=== PATIENT | male | born 1960 | race Caucasian/White ===

== ENCOUNTER → 2016-11-04 | Outpatient (CLI) | payer OTHER ==
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
== END ==
LOC: RADCTMAIN 13:58
PROVIDERS: ATTEND Surgery
DX: K76.89 Other specified diseases of liver (principal); K43.9 Ventral hernia without obstruction or gangrene
CPT/HCPCS: 74177; Q9967

== ENCOUNTER → 2017-09-27 | Outpatient (CLI) | payer OTHER ==
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
== END | disposition home or self-care (01) ==
LOC: RADUSWWP 06:49
PROVIDERS: ATTEND Family Medicine
DX: R16.0 Hepatomegaly, not elsewhere classified (principal)
CPT/HCPCS: 76705

== ENCOUNTER → 2017-10-11 | Outpatient (CLI) | payer OTHER, MEDICARE ==
--- NOTE | 2017-10-11 23:51 | MR ---
EXAMINATION TYPE: MR abdomen wo/w con DATE OF EXAM: 10/11/2017 COMPARISON: NONE HISTORY: Abnormal U/S, Hepatomegaly / Liver Mass CONTRAST: Standard multiplanar, multisequence MRI departmental protocol utilizing 10 mL intravenous Gadavist ga dolinium contrast. FINDINGS: There is a 5.3 x 4 cm rounded mass in the anterior right lobe of the liver that has fairly high signal on the T2 images. This is adjacent to the gallbladder. There is no enhancement and the wa ll is relatively thin. I think this is a complex cyst. This appears not changed in size compared to u ltrasound 09/27/[address] scan of 11/04/2016. The bile ducts are not dilated. There is no evidenc e of a pancreatic mass. Pancreatic duct appears normal. Spleen appears normal. There is no adrenal ma ss. Kidneys show satisfactory contrast opacification. There is no hydronephrosis. There is no sign of retroperitoneal adenopathy. There is no ascites. The stomach appears normal. There is no sign of ple ural effusion. Gallbladder appears normal. IMPRESSION: Oval-shaped fluid signal type mass in the anterior right lobe of the liver has features of a complex cyst and is stable compared to the exam almost one year ago CT scan 11/04/2016. This suggests a benign etiology. No dilated ducts. The lesion has some significant internal echoes on the ultrasound recent exam and this is probably due to complex fluid.
== END | disposition home or self-care (01) ==
LOC: RADMRIMAIN 15:11
PROVIDERS: ATTEND Family Medicine
DX: R16.0 Hepatomegaly, not elsewhere classified (principal); K76.9 Liver disease, unspecified
CPT/HCPCS: 74183; A9581

== ENCOUNTER 2018-10-31 10:17 | Emergency (ER) | payer MEDICARE, OTHER ==
[2018-10-31 10:22] VITALS: BP 142/100; PULSE 70; RESP 16; TEMP 97.7
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
--- NOTE | 2018-10-31 11:19 | ED ---
Fall HPI - General Chief Complaint: Fall Stated Complaint: Fall-Rib pain Source: patient, RN notes reviewed, old records reviewed Mode of arrival: ambulatory - History of Present Illness Initial Comments: This is a 58-year-old male the ER for evaluation. Patient presents status post fall. Fall right-sided rib pain. No shortness of breath. Symptoms 4 days. He is wearing a brace for his ribs he does seem like it helps. No pain medication MD Complaint: fall -: days(s) (3) Fall From: standing When Fall Occurred: # days [employer] (3) Fall Witnessed: no Place Fall Occurred: home Loss of Consciousness: none Prolonged Down Time?: no Symptoms Prior to Fall: none Location: chest Severity: moderate Severity scale (1-10): 4 Quality: sharp Context: tripped/slipped Associated Symptoms: denies - Related Data Home Medications Medication Instructions Recorded Confirmed Latanoprost Ophth [Xalatan 0.005%] 1 drop BOTH EYES HS 10/31/18 10/31/18 Previous Rx's Medication Instructions Recorded Naproxen [Naprosyn] 500 mg PO Q12HR PRN #30 tab 10/31/18 Allergies Allergy/AdvReac Type Severity Reaction Status Date / Time No Known Allergies Allergy Verified 10/31/18 10:22 Review of Systems ROS Statement: Those systems with pertinent positive or pertinent negative responses have been documented in the HPI. ROS Other: All systems not noted in ROS Statement are negative. Past Medical History Past Medical History: Diabetes Mellitus, Eye Disorder, GERD/Reflux Additional Past Medical History / Comment(s): GLAUCOMA, HX OF POLYPS, DIET CONTROLLED DIABETES History of Any Multi-Drug Resistant Organisms: None Reported Past Surgical History: Orthopedic Surgery Additional Past Surgical History / Comment(s): LEFT LEG SURGERY WITH PINS, COLONOSCOPY, EGD Past Anesthesia/Blood Transfusion Reactions: No Reported Reaction Past Psychological History: No Psychological Hx Reported Smoking Status: Former smoker Past Alcohol Use History: Occasional Past Drug Use History: None Reported General Exam Limitations: no limitations General appearance: alert, in no apparent distress Head exam: Present: atraumatic, normocephalic, normal inspection Eye exam: Present: normal appearance, PERRL, EOMI. Absent: scleral icterus, conjunctival injection, periorbital swelling ENT exam: Present: normal exam, mucous membranes moist Neck exam: Present: normal inspection. Absent: tenderness, meningismus, lymphadenopathy Respiratory exam: Present: normal lung sounds bilaterally. Absent: respiratory distress, wheezes, rales, rhonchi, stridor Cardiovascular Exam: Present: regular rate, normal rhythm, normal heart sounds. Absent: systolic murmur, diastolic murmur, rubs, gallop, clicks GI/Abdominal exam: Present: soft, normal bowel sounds. Absent: distended, tenderness, guarding, rebound, rigid Extremities exam: Present: normal inspection, full ROM, normal capillary refill. Absent: tenderness, pedal edema, joint swelling, calf tenderness Back exam: Present: normal inspection Neurological exam: Present: alert, oriented X3, CN II-XII intact Psychiatric exam: Present: normal affect, normal mood Skin exam: Present: warm, dry, intact, normal color. Absent: rash Course Vital Signs 10/31/18 10:20 Temperature 97.7 F Pulse Rate 70 Respiratory 16 Rate Blood Pressure 142/100 O2 Sat by Pulse 95 Oximetry Medical Decision Making - Medical Decision Making 58 male the ER for evaluation patient had today fall. Positive rib fracture. Patient does not want take pain medication. Patient can be discharged home - Radiology Data Radiology results: report reviewed (S x-ray with rib studies positive for 6 or fracture), image reviewed Disposition Clinical Impression: Right rib fracture, Fall Disposition: HOME SELF-CARE Condition: Good Instructions (If sedation given, give patient instructions): Rib Fracture (ED) Prescriptions: Naproxen [Naprosyn] 500 mg PO Q12HR PRN #30 tab PRN Reason: Pain Is patient prescribed a controlled substance at d/c from ED?: No Referrals: None,Stated [Primary Care Provider] - 1-2 days
== END 2018-10-31 11:34 | disposition home or self-care (01) ==
LOC: EC 10:17
DX: S22.31XA Fracture of one rib, right side, initial encounter for closed fracture (principal); H40.9 Unspecified glaucoma; Z87.891 Personal history of nicotine dependence; Z79.899 Other long term (current) drug therapy; W01.0XXA Fall on same level from slipping, tripping and stumbling without subsequent striking against object, initial encounter; Y92.009 Unspecified place in unspecified non-institutional (private) residence as the place of occurrence of the external cause
CPT/HCPCS: 99284

== ENCOUNTER 2018-12-02 23:16 | Emergency (ER) | payer MEDICARE ==
--- NOTE | 2018-12-03 00:21 | ED ---
Chest Pain HPI - General Chief Complaint: Chest Pain Stated Complaint: Shoulder pain, abd pain Time Seen by Provider: 12/02/18 23:34 Source: patient, family Mode of arrival: ambulatory Limitations: no limitations - History of Present Illness Initial Comments: This patient is a 58-year-old man who presents to be evaluated for pain to the back and the substernal epigastric area. The patient states that the pain had come on tonight. The patient reports that he takes a number of vitamins and herbals. He ended up taking all those this evening, it amounts to about 10 capsules. He states that after taking those he experienced pain between the shoulder blade area and also the substernal and epigastric areas. He states that it is aching, is moderately intense, and he did not discover worsening or relieving factors. When the pain persisted he decided to be seen here. The patient states that the pain has improved as far as intensity but it has not fully resolved. He has not had palpitations, syncope, dyspnea, diaphoresis, nausea or vomiting. MD Complaint: chest pain Onset/Timin -: hour(s) Onset: during rest Pain Location: substernal Pain Radiation: back Severity: moderate Quality: aching Consistency: constant Improves With: nothing Worsens With: nothing Treatments Prior to Arrival: none - Related Data Home Medications Medication Instructions Recorded Confirmed Latanoprost Ophth [Xalatan 0.005%] 1 drop BOTH EYES HS 10/31/18 10/31/18 Previous Rx's Medication Instructions Recorded Naproxen [Naprosyn] 500 mg PO Q12HR PRN #30 tab 10/31/18 Allergies Allergy/AdvReac Type Severity Reaction Status Date / Time No Known Allergies Allergy Verified 12/02/18 23:23 Review of Systems ROS Statement: Those systems with pertinent positive or pertinent negative responses have been documented in the HPI. ROS Other: All systems not noted in ROS Statement are negative. Constitutional: Denies: fever, chills Respiratory: Denies: cough, dyspnea Cardiovascular: Reports: as per HPI, chest pain. Denies: palpitations, dyspnea on exertion, orthopnea, edema, syncope Gastrointestinal: Reports: abdominal pain. Denies: nausea, vomiting, diarrhea, melena, hematochezia Genitourinary: Denies: dysuria, hematuria Musculoskeletal: Reports: as per HPI, back pain Skin: Denies: rash Neurological: Denies: headache, weakness, numbness EKG Findings - EKG Results: EKG: interpreted by ERMD, sinus rhythm (Rate approximate 67 bpm), normal axis, normal QRS - Blocks, [place], Hypertrophy, ST Abn: Repolarization changes or abnormalities: nonspecific abnormality, ST segment, and/or T wave Past Medical History Past Medical History: Diabetes Mellitus, Eye Disorder, GERD/Reflux Additional Past Medical History / Comment(s): GLAUCOMA, HX OF POLYPS, DIET CONTROLLED DIABETES History of Any Multi-Drug Resistant Organisms: MRSA Date of last positivie culture/infection: 2014 Past Surgical History: Orthopedic Surgery Additional Past Surgical History / Comment(s): LEFT LEG SURGERY WITH PINS, COLONOSCOPY, EGD Past Anesthesia/Blood Transfusion Reactions: No Reported Reaction Past Psychological History: No Psychological Hx Reported Smoking Status: Former smoker Past Alcohol Use History: Occasional Past Drug Use History: None Reported General Exam Limitations: no limitations General appearance: alert, in no apparent distress Head exam: Present: atraumatic, normocephalic Eye exam: Present: normal appearance. Absent: scleral icterus, conjunctival injection Neck exam: Present: normal inspection Respiratory exam: Present: normal lung sounds bilaterally. Absent: respiratory distress, wheezes, rales, rhonchi, stridor Cardiovascular Exam: Present: regular rate, normal rhythm, normal heart sounds. Absent: systolic murmur, diastolic murmur, rubs, gallop GI/Abdominal exam: Present: soft, normal bowel sounds. Absent: distended, tenderness, guarding, rebound, rigid, mass Extremities exam: Present: normal inspection, normal capillary refill. Absent: pedal edema, calf tenderness Back exam: Present: normal inspection. Absent: CVA tenderness (R), CVA tenderness (L) Neurological exam: Present: alert Skin exam: Present: warm, dry, intact, normal color. Absent: rash Course Vital Signs 12/02/18 12/03/18 12/03/18 23:18 02:10 02:41 Temperature 97.5 F L Pulse Rate 76 76 65 Respiratory 20 18 20 Rate Blood Pressure 147/73 154/72 148/68 O2 Sat by Pulse 99 99 98 Oximetry 12/03/18 02:46 Temperature 98.6 F Pulse Rate 78 Respiratory 18 Rate Blood Pressure 160/77 O2 Sat by Pulse 98 Oximetry Chest Pain MDM - [facility] is a 58-year-old man with a back and chest pain. He is sent for CT which does show thoracic aortic dissection. I discussed with Dr. Junior, based on my read of the CT and he feels that the patient would best be served with higher level of care. I discussed recommendation for transfer with the patient and partner, and they did order a number of hospitals for me to contact. I discussed the patient with the transfer team at [facility] and they state that they do not have capacity at this time. Case is subsequently discussed with the transfer team at [facility] and also with Dr. Burk, who will accept the patient for transfer. I discussed with the radiologist who did call with a CT read. Critical Care Time Critical Care Time: Yes (40 minutes) Disposition Clinical Impression: Acute thoracic aortic dissection Disposition: OTHER INSTITUTION NOT DEFINED Condition: Critical Is patient prescribed a controlled substance at d/c from ED?: No Referrals: None,Stated [Primary Care Provider] - 1-2 days - Out of Hospital Transfer - Req. Specs Out of Hospital Transfer - Requested Specifics: Adult ICU ([facility])
--- NOTE | 2018-12-03 00:48 | XR ---
EXAM: XR Chest, 1 View CLINICAL HISTORY: Chest pain TECHNIQUE: Frontal view of the chest. COMPARISON: Chest x-ray dated 10/31/2018 FINDINGS: Lungs: Airspace opacities seen within the lower lungs which may be secondary to low lung volumes. An inflammatory or infectious process is not excluded. Pleural space: Unremarkable. No pneumothorax. Heart: Unremarkable. No cardiomegaly. Mediastinum: Unremarkable. Bones/joints: Degenerative changes of the osseous structures. IMPRESSION: Airspace opacities seen within the lower lungs which may be secondary to low lung volumes. An inflammatory or infectious process is not excluded.
[2018-12-03 01:02] LABS: Basophils % (A) 0 %; Eosinophils # (A) 0.1 k/uL (0-0.7); Eosinophils % (A) 2 %; HCT 38.7 % (39.0-53.0); HGB 13.2 gm/dL (13.0-17.5); Lymphocytes # (A) 2.7 k/uL (1.0-4.8); Lymphocytes % (A) 38 %; MCH 28.4 pg (25.0-35.0); MCV 83.5 fL (80.0-100.0); Mean Platelet Volume 7.3; Monocytes # (A) 0.5 k/uL (0-1.0); Monocytes % (A) 8 %; Neutrophils # (A) 3.4 k/uL (1.3-7.7); Neutrophils % (A) 49 %; Platelet Count 191 k/uL (150-450); RBC 4.64 m/uL (4.30-5.90)
[2018-12-03] MEDS ORDERED: MAG HYDROX/AL HYDROX/SIMETH 30 ML, HYOSCYAMINE ELIXIR 10 ML, CIMETIDINE HCL 300 MG, LID... PO STA ×4 (01:09)
[2018-12-03] MEDS ORDERED: MORPHINE SULFATE 4 MG/ML SYRINGE IV STA (01:10)
[2018-12-03 01:11] LABS: Albumin 4.2 g/dL (3.5-5.0); Calcium 9.5 mg/dL (8.4-10.2); Magnesium 1.9 mg/dL (1.6-2.3); Potassium 4.2 mmol/L (3.5-5.1); Total Bilirubin 0.6 mg/dL (0.2-1.3); Total Protein 6.7 g/dL (6.3-8.2)
[2018-12-03 01:18] LABS: INR 0.9 (<1.2); Partial Thromboplastin Time 23.4 sec (22.0-30.0)
[2018-12-03 01:21] LABS: D-Dimer 1.07 mg/L FEU (<0.60)
[2018-12-03] MEDS ORDERED: ESMOLOL IN SODIUM CHLORIDE PMX 2.5 GM in SALINE 1 250ML.BAG IV ONE (02:01)
--- NOTE | 2018-12-03 02:14 | CT ---
ADDENDUM - Added by Jean-Pierre Mina MD on 12/03/2018 2:14 AM (-07:00) EXAM: CT Abdomen and Pelvis With Intravenous Contrast CLINICAL HISTORY: None. TECHNIQUE: Axial computed tomography images of the abdomen and pelvis with intravenous contrast. CTDI is 0.085, 0.085, 1.5, 1.5, 1.5, 1.5, 8.4, 10. 1 mGy and DLP is 1311.5 mGy-cm. This CT exam was performed using one or more of the following dose reduction techniques: automated exposure control, adjustment of the mA and/or kV according to patient size, and/or use of iterative reconstruction technique. COMPARISON: CT abdomen and pelvis dated 11/04/2016 FINDINGS: Lung bases: Dependent atelectasis. ABDOMEN: Liver: Low-density lesion within left hepatic lobe with calcification, which is nonspecific. This measures up to 4.5 cm and is unchanged. There are additional subcentimeter hypodensities within the liver which are too small to characterize. Gallbladder and bile ducts: Unremarkable. Pancreas: Unremarkable. Spleen: Unremarkable. Adrenals: Unremarkable. Kidneys and ureters: Nonobstructing calculus within the left kidney. Probable subcentimeter cysts within the kidneys. No hydronephrosis. Stomach and bowel: Unremarkable. PELVIS: Appendix: Appendix is unremarkable. Bladder: Unremarkable. Reproductive: Unremarkable as visualized. ABDOMEN and PELVIS: Intraperitoneal space: Unremarkable. Bones/joints: No acute fracture. No dislocation. Soft tissues: Multiple tiny ventral wall fat-containing hernias.. After gender changes of the spine. Vasculature: Partially visualized thoracic aortic dissection extending to the abdominal aorta to the level of the takeoff of the ADELSO. Lymph nodes: Unremarkable. IMPRESSION: 1. Partially visualized thoracic aortic dissection extending to the abdominal aorta to the level of the takeoff of the ADELSO. 2. Nonobstructing calculus within the left kidney. <MYCVCSECTION> Critical Value Communications 12/03/18 02:21 Verify Receipt Verified receipt with Dr. Atkinson on 12/03 02:20 (-04:00)
--- NOTE | 2018-12-03 02:17 | CT ---
EXAM: CT Angiography Chest With Intravenous Contrast CLINICAL HISTORY: Pain TECHNIQUE: Axial computed tomographic angiography images of the chest with intravenous contrast using pulmonary embolism protocol. CTDI is 0.085, 0. 085, 1.5, 1.5, 1.5, 1.5, 8.4, 10.1 mGy and DLP is 1311.5 mGy-cm. This CT exam was performed using one or more of the following dose reduction techniques: automated exposure control, adjustment of the mA and/or kV according to patient size, and/or use of iterative reconstruction technique. MIP reconstructed images were created and reviewed. COMPARISON: No relevant prior studies available. FINDINGS: Pulmonary arteries: No pulmonary embolus. Aorta: [place] type B aortic dissection extending to the abdominal aorta to the level of the takeoff of the ADELSO. Lungs: Dependent atelectasis. No mass. Pleural space: Unremarkable. No significant effusion. No pneumothorax. Heart: Coronary artery calcifications. No significant pericardial effusion. No evidence of RV dysfunction. Bones/joints: Remote healed rib fractures. No acute fracture. No dislocation. Soft tissues: Unremarkable. Lymph nodes: Subcentimeter mediastinal and hilar lymph nodes, likely reactive. IMPRESSION: 1. [place] type B aortic dissection extending to the abdominal aorta to the level of the takeoff of the ADELSO. 2. No pulmonary embolus. <MYCVCSECTION> Critical Value Communications 12/03/18 02:20 Call Doctor Regarding Above results, called Dr. Atkinson on 12/03 02:18 (-04:00)
[2018-12-03 02:48] VITALS: BP 160/77; PULSE 78; RESP 18; TEMP 98.6
== END 2018-12-03 03:15 | disposition other institution (70) ==
LOC: EC 23:16
DX: I71.01 Dissection of thoracic aorta (principal); H40.9 Unspecified glaucoma; Z86.14 Personal history of Methicillin resistant Staphylococcus aureus infection; Z87.891 Personal history of nicotine dependence; Z79.899 Other long term (current) drug therapy
CPT/HCPCS: 36415; 85379; 80053; 82150; 83690; 83735; 84484; 85025; 85610; 85730; 71045; 71275; 74177; 99285; 96365; 96375; J2270; Q9967

== ENCOUNTER 2019-10-16 07:25 | Day surgery (SDC) | payer MEDICARE ==
[2019-10-15 09:22] VITALS: BMI 24.7
[~2019-10-16 07:25] MED LIST: LACTATED RINGERS 1,000 ML IV SCH; LIDOCAINE 1% 20 ML VIAL (10MG/ML) FOR IV START INTRADERMA PRN
[2019-10-16 08:01] LABS: Glucose,Whole Blood 140 mg/dL (75-99)
[2019-10-16 08:05] VITALS: RESP 16; TEMP 97.5
[2019-10-16] MEDS ORDERED: PROPOFOL 10 MG/ML 20 ML VIAL IV ONE (08:25)
--- NOTE | 2019-10-16 08:42 | P.PCN ---
Date of Procedure: 10/16/19 Procedure(s) Performed: BRIEF HISTORY: Patient is a 59-year-old pleasant white male scheduled for an elective colonoscopy as a part of screening for colorectal rectal neoplasia. PROCEDURE PERFORMED: Colonoscopy. PREOPERATIVE DIAGNOSIS: Screening for colon cancer. IV sedation per Anesthesia. PROCEDURE: After informed consent was obtained, the patient, was brought into the endoscopy unit. IV sedation was administered by Anesthesia under continuous monitoring. Digital rectal examination was normal. Initially the Olympus CF-160 flexible video colonoscope was then inserted in the rectum, gradually advanced into the cecum without any difficulty. Careful examination was performed as the scope was gradually being withdrawn. Ileocecal valve and the appendiceal orifice were visualized and appeared normal. Prep was excellent. Mucosa of the cecum, ascending colon, transverse colon, descending colon, sigmoid colon, and rectum appeared normal. Retroflexion was performed in the rectum and no lesions were seen. The patient tolerated the procedure well. IMPRESSION: Normal-appearing colon from rectum to cecum with no evidence of colorectal neoplasia. RECOMMENDATIONS: Findings of this examination were discussed with the patient as well as his family. He was advised to have a repeat surveillance colonoscopy in 10 years.
[2019-10-16 08:58] VITALS: BP 110/60; PULSE 74
== END 2019-10-16 09:24 | disposition home or self-care (01) ==
LOC: ORWHC2ENDO 07:25
PROVIDERS: ATTEND Internal Medicine Gastroenterology
DX: Z12.11 Encounter for screening for malignant neoplasm of colon (principal); I10 Essential (primary) hypertension; I73.9 Peripheral vascular disease, unspecified; Z79.899 Other long term (current) drug therapy
CPT/HCPCS: J2704; G0121